=== PATIENT | female | born 1960 | race Caucasian/White ===

== ENCOUNTER → 2017-01-14 | Outpatient (CLI) | payer BC ==
--- NOTE | 2017-01-15 08:23 | MM ---
Reason for exam: screening (asymptomatic). Last mammogram was performed 1 year and 5 months ago. History: Patient is postmenopausal. Took estrogen for 6 years beginning at age 45. Physical Findings: A clinical breast exam by your physician is recommended on an annual basis and results should be correlated with mammographic findings. MG Screening Mammo w CAD Bilateral CC and MLO view(s) were taken. XCCL view(s) were taken of the right breast. Prior study comparison: August 02, 2015, bilateral MG 3d diag mammo w/cad JAY. June 26, 2014, right breast MG work up mamm w CAD RT. There are scattered fibroglandular densities. No significant changes when compared with prior studies. ASSESSMENT: Benign, BI-RAD 2 RECOMMENDATION: Routine screening mammogram of both breasts in 1 year.
== END | disposition home or self-care (01) ==
LOC: RADMAMWWP 08:01
PROVIDERS: ATTEND Obstetrics & Gynecology
DX: Z12.31 Encounter for screening mammogram for malignant neoplasm of breast (principal); Z13.9 Encounter for screening, unspecified
CPT/HCPCS: 84439; 80061; 82947; 84443; G0202

== ENCOUNTER 2017-01-28 07:24 | Day surgery (SDC) | payer BC ==
[2017-01-26 16:19] VITALS: BMI 34.4
[2017-01-28 07:48] VITALS: TEMP 97.3
[2017-01-28] MEDS: LACTATED RINGERS 1,000 ML IV SCH ×2 (07:50→07:58)
[2017-01-28] MEDS ORDERED: LIDOCAINE 1% 20 ML VIAL (10MG/ML) FOR IV START INTRADERMA ONE (07:50)
[2017-01-28] MEDS ORDERED: PROPOFOL 10 MG/ML 20 ML VIAL IV ONE (08:00)
[2017-01-28] MEDS ORDERED: LIDOCAINE 1% INJ 10MG/ML (20 ML MDV) ONE (08:00)
--- NOTE | 2017-01-28 08:39 | P.PCN ---
Date of Procedure: 01/28/17 Preoperative Diagnosis: Postoperative Diagnosis: Procedure(s) Performed: Procedure: Colonoscopy and polypectomy. Preoperative diagnosis: Screening for neoplasia. Postoperative diagnosis: 1. Two small polyps snared but no large polyps or cancer. 2. Low-grade internal hemorrhoids not bleeding at the time of this exam. Preparation: HalfLytely prep. Sedation: Was provided by anesthesia. Brief clinical history: The patient is a 57-year-old female who is referred for this evaluation for screening for neoplasia age being her risk factor. There is no family history of colon cancer. This would be her first colonoscopy. The patient reports occasional constipation and occasional blood on her stools or on the toilet tissue which she blames on hemorrhoids. Procedure: With the patient on her left lateral decubitus position and after informed consent and adequate sedation, the perianal area was inspected and it did not show any fissures or fistulas. There was some skin relaxation and redundancy and an external skin tag probably representing a thrombosed external hemorrhoid. No masses were felt on digital rectal examination. The Olympus CFQ 160L video colonoscope was then inserted in the rectum in the usual fashion and advanced to the cecum. The preparation was less than ideal with some thick fecal secretions and fecal debris that could not be washed off totally in all areas. The mucosa, otherwise, appeared healthy. There was 2 small polyps which I snared one in the proximal sigmoid and one in the distal sigmoid but there were no large polyps or cancer. No obvious diverticular disease. I retroflexed the endoscope in the rectum before the endoscope was withdrawn. Low -grade internal hemorrhoids were noted without bleeding as well as prominent anal papillae. The patient tolerated the procedure well. Plan: The patient was reassured. Discussed dietary measures and local care for hemorrhoids. I anticipate repeating this exam in 3 years. She will follow-up with you as planned. Implants: Indications for Procedure: Operative Findings: Description of Procedure:
[2017-01-28 08:50] VITALS: RESP 16
[2017-01-28 09:28] VITALS: BP 118/69; PULSE 73
== END 2017-01-28 09:18 | disposition home or self-care (01) ==
LOC: ORWHC2ENDO 07:24
DX: Z12.11 Encounter for screening for malignant neoplasm of colon (principal); K63.5 Polyp of colon; K64.8 Other hemorrhoids; E78.5 Hyperlipidemia, unspecified; Z79.899 Other long term (current) drug therapy; Z88.5 Allergy status to narcotic agent; Z88.8 Allergy status to other drugs, medicaments and biological substances; Z72.0 Tobacco use
CPT/HCPCS: 88305; 45385; J2001; J2704

== ENCOUNTER → 2017-04-08 | Outpatient (CLI) | payer BC ==
--- NOTE | 2017-04-08 16:17 | US ---
"EXAMINATION TYPE: US abdomen limited DATE OF EXAM: 04/08/2017 COMPARISON: NONE CLINICAL HISTORY: R10.11 Right upper quadrant pain. EXAM MEASUREMENTS: Liver Length: 17.6 cm Gallbladder Wall: 0.2 cm CBD: 0.2 cm Right Kidney: 10.9 x 3.7 x 4.9 cm cm Pancreas: Obscured by bowel gas Liver: left lobe vascular structure mass 2.3 x 3.1 x 1.4 cm Gallbladder: wnl Evidence for sonographic Steinberg's sign: Yes CBD: wnl Right Kidney: wnl IMPRESSION: 1. There is an ill-defined hypoechoic: Mass within the left lobe liver. Additional workup with contra st CT abdomen is recommended. 2. Mild hepatomegaly 17.6 cm. A Yellow message has been communicated to Kwasi Cosme MD via the [employer] | Critical Result sy stem on 04/08/2017 4:15 PM, Message ID [id number]."
== END | disposition home or self-care (01) ==
LOC: RADUSWWP 07:09
PROVIDERS: ATTEND Family Medicine
DX: R16.0 Hepatomegaly, not elsewhere classified (principal); Z88.2 Allergy status to sulfonamides; Z88.5 Allergy status to narcotic agent
CPT/HCPCS: 76705

== ENCOUNTER → 2017-04-13 | Outpatient (CLI) | payer BC ==
--- NOTE | 2017-04-13 08:53 | CT ---
EXAMINATION TYPE: CT abdomen w con DATE OF EXAM: 04/13/2017 COMPARISON: NONE HISTORY: Liver mass CT DLP: 1352.80 mGycm CONTRAST: CT scan of the abdomen is performed with Oral Contrast and with IV Contrast, patient injected with 10 0 ml mL of Omnipaque 300. FINDINGS: LUNG BASES-: No visible nodule. No infiltrate. LIVER/GB: No calcified gallstones. Hyperdense lesion anterior segment right hepatic lobe measures 2 cm could reflect hemangioma however given lack of filling in on delayed images cannot exclude other possibilities and MRI of the liver is advised. There is evidence of fatty hepatic infiltration and mi ld hepatomegaly. PANCREAS: No inflammation. No distinct mass. SPLEEN: No splenic enlargement. No lesion seen. ADRENALS: No nodule. No thickening. KIDNEYS/BLADDER: No hydronephrosis. No nephrolithiasis. 2.1 cm angiomyolipoma upper pole left kidn ey. No additional space-occupying lesions are seen of the kidneys. Urinary bladder grossly unremarkab le. BOWEL: Normal bowel caliber. No inflammation. LYMPH NODES: No greater than 1cm abdominal or pelvic lymph nodes are appreciated. AORTA: No significant abnormality. OSSEOUS STRUCTURES: No significant abnormality is seen. OTHER: Fat-containing umbilical hernia is noted. IMPRESSION: 1. Nonspecific hyperdense hepatic lesion could reflect hemangioma however given lack of filling furth er characterization with MRI advised. 2. Angiomyolipoma left kidney. 3. Mild hepatomegaly and fatty hepatic infiltration.
== END | disposition home or self-care (01) ==
LOC: RADCTMAIN 08:04
PROVIDERS: ATTEND Family Medicine
DX: K76.0 Fatty (change of) liver, not elsewhere classified (principal); D17.71 Benign lipomatous neoplasm of kidney; R16.0 Hepatomegaly, not elsewhere classified
CPT/HCPCS: 74160; Q9967

== ENCOUNTER → 2017-04-27 | Outpatient (CLI) | payer BC ==
--- NOTE | 2017-04-27 08:04 | MR ---
EXAMINATION TYPE: MR abdomen wo/w con DATE OF EXAM: 04/27/2017 COMPARISON: CT abdomen dated 04/13/2017 HISTORY: Hepatic Lesion CONTRAST: Standard multiplanar, multisequence MRI departmental protocol utilizing 10 mL intravenous Gadavist ga dolinium contrast. FINDINGS: LIVER: There is heterogenous signal dropout on out of phase imaging of the hepatic parenchyma with fo david fatty sparing in segment IVb and for a without corresponding T2 signal abnormality. 7 mm T2 hyper intense and T1 hypointense nonenhancing hepatic cyst is seen within segment 8 on image 32 of T2 axial fat sat sequence. 2 smaller subcentimeter cysts are also seen on image 40 within the right hepatic l obe and additional cyst on image 45 within the right hepatic lobe near the dome of the diaphragm. Las tly additional subcentimeter cyst is present in segment IVb near the fissure for the ligamentum teres . As described on the prior CT there is a T2 hyperintense multilobulated 1.9 x 2.3 x 2.4 cm (anteropost erior by transverse by cranial caudal dimension) mass is present within segment 5 that is T1 hypointe nse. This demonstrates peripheral discontinuous puddling enhancement filling in completely on delayed imaging compatible with a benign hemangioma. KIDNEYS: Within the superior pole of the left kidney emanating from the anterior cortex there is a pr edominantly fat containing lesion that is hyperintense on nonfat sat sequences and hypointense on fat sat sequences with internal foci of signal dropout indicating additional microscopic fat measuring 1 .9 cm compatible with benign angiomyolipoma. Emanating from the superior pole the right kidney there is a T2 hyperintense and T1 hypointense nonen hancing renal cyst. Remainder of the kidneys enhance symmetrically. ADRENAL glands: Symmetric and unremarkable without evidence of nodularity. GALLBLADDER: No gallbladder wall thickening, pericholecystic fluid or cholelithiasis visualized on MR I. SPLEEN: Abnormal enhancement and morphology measuring 10.3 cm in craniocaudal dimension, nonenlarged. VASCULATURE: Visualized portions of the abdominal aorta are of normal course and caliber. ABDOMINAL wall: A ventral periumbilical fat filled hernia is seen within approximately 1.0 cm neck. BOWEL: Bowel is nonenlarged with no focal bowel wall thickening. PANCREAS: No ductal dilatation or discrete pancreatic mass. No pancreatic atrophy. OSSEOUS STRUCTURES: Unremarkable bone marrow signal other than multilevel degenerative endplate agustin es of the thoracic spine, mild in degree. LUNG BASES: Right basilar pleural-parenchymal scarring is present. ADENOPATHY: No gross evidence of adenopathy within the abdomen. IMPRESSION: 1. Benign hepatic hemangioma, the lesion in question on the prior CT, and benign subcentimeter hepati c cysts superimposed on a background of heterogenous mild hepatic steatosis with areas of focal fatty sparing. 2. Benign right renal cyst and left renal angiomyolipoma.
== END | disposition home or self-care (01) ==
LOC: RADMRIMAIN 06:04
PROVIDERS: ATTEND Family Medicine
DX: D18.03 Hemangioma of intra-abdominal structures (principal); K76.89 Other specified diseases of liver; K76.0 Fatty (change of) liver, not elsewhere classified; D17.71 Benign lipomatous neoplasm of kidney; N28.1 Cyst of kidney, acquired
CPT/HCPCS: 74183; A9577

== ENCOUNTER → 2018-05-11 | Outpatient (CLI) | payer BC ==
--- NOTE | 2018-05-16 10:53 | MM ---
Reason for exam: screening (asymptomatic). Last mammogram was performed 1 year and 4 months ago. History: Patient is postmenopausal. Taking estrogen for 13 years beginning at age 45. Physical Findings: A clinical breast exam by your physician is recommended on an annual basis and results should be correlated with mammographic findings. MG 3D Screening Mammo W/Cad Bilateral CC and MLO view(s) were taken. Prior study comparison: January 14, 2017, bilateral MG screening mammo w CAD. August 02, 2015, bilateral MG 3d diag mammo w/cad JAY. The breast tissue is heterogeneously dense. This may lower the sensitivity of mammography. No suspicious abnormality. No significant changes when compared with prior studies. ASSESSMENT: Negative, BI-RAD 1 RECOMMENDATION: Routine screening mammogram of both breasts in 1 year.
== END | disposition home or self-care (01) ==
LOC: RADMAMWWP 09:40
PROVIDERS: ATTEND Family Medicine
DX: Z12.31 Encounter for screening mammogram for malignant neoplasm of breast (principal)
CPT/HCPCS: 77063; 77067

== ENCOUNTER 2018-09-02 13:12 | Emergency (ER) | payer BC, OTHER ==
[2018-09-02 13:16] VITALS: BP 133/78; PULSE 77; RESP 18; TEMP 97.6
--- NOTE | 2018-09-02 14:40 | ED ---
General Adult HPI - General Chief complaint: Needlestick/Exposure Stated complaint: [facility]-Needle stick Time Seen by Provider: 09/02/18 14:03 Source: patient, RN notes reviewed Mode of arrival: ambulatory Limitations: no limitations - History of Present Illness Initial comments: This a 58-year-old female sent emergency Department with chief complaint of ne edlestick. Patient states that she poked her left hand with lancet. She states that it did draw blood but states that she's not exactly sure if it was her third or fourth digit at this time. Patient is not exactly sure when her last tetanus was. Patient states that child has no known medical diseases. Patient states she's had this happen in the past. Patient has no history of HIV or hepatitis. - Related Data Home Medications Medication Instructions Recorded Confirmed Sertraline [Zoloft] 25 mg PO HS 06/27/15 01/28/17 Ascorbic Acid [Vitamin C] 500 mg PO DAILY 01/26/17 01/28/17 Soy Isofla/Blk Cohosh/Mag Bark 155 mg PO DAILY 01/26/17 01/28/17 [Estroven 155 mg Capsule] Vitamin B Complex 1 each PO DAILY 01/26/17 01/28/17 Vitamin E 400 unit PO DAILY 01/26/17 01/28/17 Allergies Allergy/AdvReac Type Severity Reaction Status Date / Time codeine Allergy Hallucinati Verified 09/02/18 13:16 ons meperidine [From Demerol] Allergy Hallucinati Verified 09/02/18 13:16 ons oxycodone [From Percodan] Allergy Hallucinati Verified 09/02/18 13:16 ons Review of Systems ROS Statement: Those systems with pertinent positive or pertinent negative responses have been documented in the HPI. ROS Other: All systems not noted in ROS Statement are negative. Past Medical History Past Medical History: Hyperlipidemia History of Any Multi-Drug Resistant Organisms: None Reported Past Surgical History: Appendectomy, Section, Hysterectomy, Orthopedic Surgery Additional Past Surgical History / Comment(s): LEFT KNEE ARTHROSCOPIC, LEFT FOOT SURGERY, OOPHERECTOMY , Past Anesthesia/Blood Transfusion Reactions: Motion Sickness Past Psychological History: No Psychological Hx Reported Smoking Status: Current some day smoker Past Alcohol Use History: Occasional Past Drug Use History: None Reported - Past Family History Mother Family Medical History: No Reported History General Exam Limitations: no limitations General appearance: alert, in no apparent distress Head exam: Present: atraumatic, normocephalic, normal inspection Neck exam: Present: normal inspection. Absent: tenderness, meningismus, lymphadenopathy Respiratory exam: Present: normal lung sounds bilaterally. Absent: respiratory distress, wheezes, rales, rhonchi, stridor Cardiovascular Exam: Present: regular rate, normal rhythm, normal heart sounds. Absent: systolic murmur, diastolic murmur, rubs, gallop, clicks Extremities exam: Present: other (No obvious area of injury or open wound noted to the extremities of the left hand digits) Skin exam: Present: warm, dry, intact, normal color. Absent: rash Course Vital Signs 09/02/18 13:13 Temperature 97.6 F Pulse Rate 77 Respiratory 18 Rate Blood Pressure 133/78 O2 Sat by Pulse 98 Oximetry Medical Decision Making - Medical Decision Making 58-year-old female presented for blood exposure after being struck by a lancet. Patient was offered HIV prophylaxis. Patient declines. Patient is requesting HIV and hepatitis testing for her low. She will have repeat 6 weeks and return for any worsening symptoms. Disposition Clinical Impression: Accidental needlestick injury with exposure to body fluid Disposition: HOME SELF-CARE Condition: Stable Instructions (If sedation given, give patient instructions): Needle Stick Injuries (ED) Additional Instructions: Please return to the Emergency Department if symptoms worsen or any other concerns. Is patient prescribed a controlled substance at d/c from ED?: No Referrals: Kwasi Cosme MD [Primary Care Provider] - 1-2 days Time of Disposition: 14:39
== END 2018-09-02 15:00 | disposition home or self-care (01) ==
LOC: EC 13:12
DX: Z77.21 Contact with and (suspected) exposure to potentially hazardous body fluids (principal); F17.200 Nicotine dependence, unspecified, uncomplicated; Z79.899 Other long term (current) drug therapy; Z88.5 Allergy status to narcotic agent; W46.0XXA Contact with hypodermic needle, initial encounter; Y93.89 Activity, other specified; Y92.219 Unspecified school as the place of occurrence of the external cause; Y99.0 Civilian activity done for income or pay
CPT/HCPCS: 99282

== ENCOUNTER → 2018-10-04 | Outpatient (CLI) | payer OTHER ==
--- NOTE | 2018-10-04 12:21 | XR ---
EXAMINATION TYPE: XR lumbar spine 2 or 3V DATE OF EXAM: 10/04/2018 CLINICAL HISTORY: Low back pain TECHNIQUE: Frontal and lateral images of the lumbar spine are obtained. COMPARISON: None FINDINGS: There are 5 lumbar type vertebral bodies identified. The lumbar spine shows satisfactory alignment without evidence of acute fracture or malalignment. Vertebral body heights and disk space h eights are within normal limits. Anterior osteophytes project from the lumbar spine at multiple level s. Mild facet arthropathy is seen at L4-L5 and L5-S1. The overlying soft tissue appears unremarkable . IMPRESSION: No acute fracture or malalignment is seen in the lumbar spine. Moderate degenerative dis c disease of the lumbar spine.
--- NOTE | 2018-10-04 12:21 | XR ---
EXAMINATION TYPE: XR knee complete bilateral DATE OF EXAM: 10/04/2018 COMPARISON: NONE HISTORY: Pain TECHNIQUE: Three views are submitted bilaterally. FINDINGS: Mild narrowing the medial compartment of the knee joint and patellofemoral joint bilaterally. Small a mount of fluid in the suprapatellar bursa bilaterally greater on the right.. Osseous structures are intact. No acute fracture seen. IMPRESSION: 1. No acute fracture or dislocation. 2. Small amount of fluid in the suprapatellar bursa bilaterally greater on the right. If there is con cern for internal derangement of the knee correlate with MRI. 3. Changes of osteoarthritis.
== END | disposition home or self-care (01) ==
LOC: RADXRMAIN 11:39
PROVIDERS: ATTEND Emergency Medicine
DX: M51.36 Other intervertebral disc degeneration, lumbar region (principal); M17.0 Bilateral primary osteoarthritis of knee
CPT/HCPCS: 72100

== ENCOUNTER → 2019-05-19 | Outpatient (CLI) | payer BC ==
--- NOTE | 2019-05-19 12:00 | MM ---
Reason for exam: screening (asymptomatic). Last mammogram was performed 1 year ago. History: Patient is postmenopausal. Took estrogen for 13 years beginning at age 45. Physical Findings: A clinical breast exam by your physician is recommended on an annual basis and results should be correlated with mammographic findings. MG Screening Mammo w CAD Bilateral CC and MLO view(s) were taken. Prior study comparison: May 11, 2018, bilateral MG 3d screening mammo w/cad. January 14, 2017, bilateral MG screening mammo w CAD. The breast tissue is heterogeneously dense. This may lower the sensitivity of mammography. There is no discrete abnormality. ASSESSMENT: Negative, BI-RAD 1 RECOMMENDATION: Routine screening mammogram of both breasts in 1 year.
== END | disposition home or self-care (01) ==
LOC: RADMAMWWP 09:52
PROVIDERS: ATTEND Obstetrics & Gynecology
DX: Z12.31 Encounter for screening mammogram for malignant neoplasm of breast (principal)
CPT/HCPCS: 77067

== ENCOUNTER → 2020-02-20 | Outpatient (CLI) | payer BC | END | disposition home or self-care (01) | LOC: LABWHC1 13:35 | PROVIDERS: ATTEND Orthopaedic Surgery | DX: E55.9 Vitamin D deficiency, unspecified (principal) | CPT/HCPCS: 36415; 82306 ==

== ENCOUNTER → 2020-12-03 | Outpatient (CLI) | payer BC, OTHER ==
--- NOTE | 2020-12-05 09:36 | MM ---
Reason for exam: screening (asymptomatic). Last mammogram was performed 1 year and 7 months ago. History: Patient is postmenopausal. Took estrogen for 13 years beginning at age 45. Physical Findings: A clinical breast exam by your physician is recommended on an annual basis and results should be correlated with mammographic findings. MG Screening Mammo w CAD Bilateral CC and MLO view(s) were taken. Prior study comparison: May 19, 2019, bilateral MG screening mammo w CAD. May 11, 2018, bilateral MG 3d screening mammo w/cad. There are scattered fibroglandular densities. ASSESSMENT: Negative, BI-RAD 1 RECOMMENDATION: Routine screening mammogram of both breasts in 1 year.
== END | disposition home or self-care (01) ==
LOC: RADMAMWWP 09:15
PROVIDERS: ATTEND Family Medicine
DX: Z12.31 Encounter for screening mammogram for malignant neoplasm of breast (principal); Z78.0 Asymptomatic menopausal state
CPT/HCPCS: 77067

== ENCOUNTER 2021-02-04 09:00 | Day surgery (SDC) | payer BC ==
[~2021-02-04 09:00] MED LIST: LACTATED RINGERS 1,000 ML IV SCH
[2021-02-04 09:30] VITALS: TEMP 98.2
[2021-02-04 09:42] LABS: Glucose,Whole Blood 128 mg/dL (75-99)
[2021-02-04] MEDS ORDERED: PROPOFOL 10 MG/ML 20 ML VIAL IV ONE (10:10)
[2021-02-04] MEDS ORDERED: LIDOCAINE 1% INJ 10MG/ML (20 ML MDV) ONE (10:10)
--- NOTE | 2021-02-04 10:17 | P.GSHP ---
History of Present Illness H&P Date: 02/04/21 Chief Complaint: Colon cancer screening 7-year-old female here for colonoscopy. Last colonoscopy 4 years ago. Patient had a serrated polyp at that time. No bowel complaints. No family history of colon cancer. Past Medical History Past Medical History: Diabetes Mellitus History of Any Multi-Drug Resistant Organisms: None Reported Past Surgical History: Appendectomy, Section, Hysterectomy, Orthopedic Surgery Additional Past Surgical History / Comment(s): LEFT KNEE ARTHROSCOPIC, LEFT FOOT SURGERY, OOPHERECTOMY Past Anesthesia/Blood Transfusion Reactions: Motion Sickness Past Psychological History: No Psychological Hx Reported Smoking Status: Current every day smoker Past Alcohol Use History: Rare Additional Past Alcohol Use History / Comment(s): STARTED SMOKING AT AGE 17 SMOKES 2 PACKS PER WEEK Past Drug Use History: None Reported - Past Family History Mother Family Medical History: No Reported History Medications and Allergies Home Medications Medication Instructions Recorded Confirmed Type Ascorbic Acid [Vitamin C] 500 mg PO DAILY 01/26/17 01/31/21 History Vitamin B Complex 1 each PO DAILY 01/26/17 01/31/21 History Vitamin E 400 unit PO DAILY 01/26/17 01/31/21 History Ibuprofen [Advil] 200 - 400 mg PO Q6H PRN 01/31/21 01/31/21 History metFORMIN HCL [Glucophage] 500 mg PO BID 01/31/21 01/31/21 History Allergies Allergy/AdvReac Type Severity Reaction Status Date / Time codeine Allergy Hallucinati Verified 02/04/21 09:24 ons meperidine [From Demerol] Allergy Hallucinati Verified 02/04/21 09:24 ons oxycodone [From Percodan] Allergy Hallucinati Verified 02/04/21 09:24 ons Surgical - Exam Vital Signs Temp Pulse Resp BP Pulse Ox 98.2 F 78 16 149/68 98 02/04/21 09:29 02/04/21 09:29 02/04/21 09:29 02/04/21 09:29 02/04/21 09:29 Physical exam: General: Well-developed, well-nourished HEENT: Normocephalic, sclerae nonicteric Abdomen: Nontender, nondistended Extremities: No edema Neuro: Alert and oriented Results - Labs Abnormal Lab Results - Last 24 Hours (Table) 02/04/21 Range/Units 09:41 POC Glucose (mg/dL) 128 H (75-99) mg/dL Assessment and Plan (1) Colon cancer screening Narrative/Plan: Will proceed with colonoscopy at this time Current Visit: Yes Status: Acute Code(s): Z12.11 - ENCOUNTER FOR SCREENING FOR MALIGNANT NEOPLASM OF COLON SNOMED Code(s): 184469546
--- NOTE | 2021-02-04 10:35 | P.PCN ---
Date of Procedure: 02/04/21 Procedure(s) Performed: PREOPERATIVE DIAGNOSIS: Colon cancer screening, history of polyps POSTOPERATIVE DIAGNOSIS: Rectal polyp 2 PROCEDURE: Colonoscopy with snare polypectomy ANESTHESIA: MAC SURGEON: Pietro Chau M.D. SPECIMENS: Rectal polyps ENDOSCOPIC PROCEDURE: The patient was placed on the endoscopy table in the left decubitus position. The Olympus colonoscope was inserted into the anus and passed under direct visualization to the base of the cecum. The appendiceal orifice was visualized. From that point the scope was slowly withdrawn inspecting all surfaces carefully. There were no neoplastic inflammatory or polypoid lesions throughout the cecum, ascending, transverse, descending, and sigmoid colon. In the rectum there were 2 polyps noted both removed using the snare with cautery technique. There was mild left-sided diverticulosis. Digital rectal examination was normal. The patient was taken to the recovery room in stable condition per anesthesia guidelines. RECOMMENDATIONS: Await biopsy results. Anticipate follow-up colonoscopy 5 years.
[2021-02-04 10:56] VITALS: BP 136/77; PULSE 55; RESP 16
== END 2021-02-04 11:16 | disposition home or self-care (01) ==
LOC: ORWHC2ENDO 09:00
PROVIDERS: ATTEND Surgery
DX: Z12.11 Encounter for screening for malignant neoplasm of colon (principal); D12.8 Benign neoplasm of rectum; E11.9 Type 2 diabetes mellitus without complications; F17.210 Nicotine dependence, cigarettes, uncomplicated; Z79.899 Other long term (current) drug therapy; Z88.5 Allergy status to narcotic agent; Z88.0 Allergy status to penicillin; Z79.84 Long term (current) use of oral hypoglycemic drugs
CPT/HCPCS: 88305; 45385; J2001; J2704

== ENCOUNTER → 2022-04-22 | Outpatient (CLI) | payer BC ==
--- NOTE | 2022-04-22 11:28 | BD ---
EXAMINATION TYPE: Axial Bone Density DATE OF EXAM: 04/22/2022 COMPARISON: 08/02/2015 CLINICAL HISTORY: 62 years year old Female. ICD-10 CODE: Z78.0 POST MENOPAUSAL WITHOUT HRT Height: 67 IN Weight: 214 LBS FRAX RISK QUESTIONS: History of Fracture in Adulthood: RT FOOT FX AGE 60 Secondary Osteoporosis: 3. Menopause before 45: TOTAL HYST AGE 46 RISK FACTORS HISTORY OF: Family History of Osteoporosis: YES MOTHER Active: YES Postmenopausal woman: TOTAL HYST AGE 46 Take estrogen and/or progesterone medications: NOT NOW How long: TOOK CONTROL FOR 10 YEARS MEDICATIONS: Additional Medications: B COMPLEX, VIT E, VIT C, METFORMIN EXAM MEASUREMENTS: Bone mineral densitometry was performed using the [employer]. Bone mineral density as measured about the Lumbar spine is: ----- L1-L4(G/cm2): 1.203 T Score Values are as follows: ----- L1: 1.9 ----- L2: 0.4 ----- L3: -0.3 ----- L4: -1.0 ----- L1-L4: 0.2 Bone mineral density has: Decreased -4.9% since study of: 08/02/2015 Bone mineral density about the R hip (g/cm2): 0.999 Bone mineral density about the L hip (g/cm2): 0.977 T Score values are as follows: -----R Neck: -0.3 -----L Neck: -0.4 -----R Total: 0.4 -----L Total: 0.5 Bone mineral density has: Decreased -5.9% since study of: 08/02/2015 FRAX%s: The graph provided illustrates a 10.8 chance for a major osteoporotic fx and a .4 chance for the hips probability for fx in 10 years time. IMPRESSION: Normal (Values between +1 and -1 indicate normal bone mass). Consider repeating this study in 5 year s or sooner if there is some new clinical indication. NOTE: T-SCORE=SD OF THE YOUNG ADULT MEAN.
--- NOTE | 2022-04-23 21:15 | MM ---
Reason for Exam: Screening (asymptomatic). Last mammogram was performed 1 year(s) and 5 month(s) ago. Patient History: Menarche at age 15. First Full-Term at age 31. Late child-bearing (after 31). Left ovary removed at age 43. Right ovary removed at age 45. Hysterectomy at age 43. Postmenopausal. Estrogen, from age 45 until age 53. Risk Values: Mary 5 year model risk: 1.9%. NCI Lifetime model risk: 8.9%. Prior Study Comparison: 05/11/2018 Bilateral Screening Mammogram, [facility]. 05/19/2019 Bilateral Screening Mammogram, [facility]. 12/03/2020 Bilateral Screening Mammogram, [facility]. Tissue Density: There are scattered fibroglandular densities. Findings: Analyzed By CAD. Chronic nodularity anterior superior right MLO view. Unchanged asymmetric density lateral right CC view. Asymmetric density subareolar left cc view is more defined and incompletely disperses on 3-D images. However, the appearance is similar on the MLO view. This may represent superimposition shadow but further evaluation is recommended. Overall Assessment: Incomplete: need additional imaging evaluation, BI-RAD 0 Management: Special View Mammogram of the left breast. Including spot 3-D CC, 3-D cc rolled, spot 3-D MLO, and 3-D lateral views. Targeted left breast ultrasound if any persisting abnormality. [facility] will attempt to contact patient to return for supplemental views and ultrasound if indicated. Electronically signed and approved by: Jalil Mora M.D. Radiologist
== END | disposition home or self-care (01) ==
LOC: RADBDWWP 09:08
PROVIDERS: ATTEND Family Medicine
DX: Z12.31 Encounter for screening mammogram for malignant neoplasm of breast (principal); Z78.0 Asymptomatic menopausal state; Z90.721 Acquired absence of ovaries, unilateral
CPT/HCPCS: 77063; 77067; 77080

== ENCOUNTER → 2022-04-30 | Outpatient (CLI) | payer BC ==
--- NOTE | 2022-04-30 09:33 | MM ---
Reason for Exam: Additional evaluation requested from prior study. Last screening mammogram was performed less than 1 month ago. Patient History: Menarche at age 15. First Full-Term at age 31. Late child-bearing (after 31). Left ovary removed at age 43. Right ovary removed at age 45. Hysterectomy at age 43. Postmenopausal. Estrogen, from age 45 until age 53. Risk Values: Mary 5 year model risk: 1.9%. NCI Lifetime model risk: 8.9%. Prior Study Comparison: 05/19/2019 Bilateral Screening Mammogram, [facility]. 12/03/2020 Bilateral Screening Mammogram, [facility]. 04/22/2022 Bilateral MG 3D screening mammo w/cad, [facility]. Tissue Density: Left: The breast tissue is heterogeneously dense. This may lower the sensitivity of mammography. Findings: Analyzed By CAD. Under compression of the superior and subareolar left breast appears to disperse. Findings appear stable from comparison studies. Monitoring is recommended with follow-up exam in 6 months. Overall Assessment: Probably benign, BI-RAD 3 Management: Diagnostic Mammogram of the left breast in 6 months. A clinical breast exam by your physician is recommended on an annual basis and results should be correlated with mammographic findings. This exam should not preclude additional follow-up of suspicious palpable abnormalities. Results were given to the patient verbally at the time of exam. Electronically signed and approved by: Kevon Bojorquez D.O. Radiologis
== END | disposition home or self-care (01) ==
LOC: RADMAMWWP 09:03
PROVIDERS: ATTEND Family Medicine
DX: R92.8 Other abnormal and inconclusive findings on diagnostic imaging of breast (principal); Z78.0 Asymptomatic menopausal state; Z90.721 Acquired absence of ovaries, unilateral
CPT/HCPCS: 77061; 77065

== ENCOUNTER → 2022-11-12 | Outpatient (CLI) | payer BC ==
--- NOTE | 2022-11-12 10:17 | MM ---
Reason for Exam: Follow-up at short interval from prior study. Last screening mammogram was performed 6 month(s) ago. Patient History: Menarche at age 15. First Full-Term at age 31. Late child-bearing (after 31). Left ovary removed at age 43. Right ovary removed at age 45. Hysterectomy at age 43. Postmenopausal. Estrogen, from age 45 until age 53. Risk Values: Mary 5 year model risk: 1.9%. NCI Lifetime model risk: 8.9%. Prior Study Comparison: 12/03/2020 Bilateral Screening Mammogram, [facility]. 04/22/2022 Bilateral MG 3D screening mammo w/cad, [facility]. 04/30/2022 Left MG 3D work up w/cad , [facility]. Tissue Density: Left: There are scattered fibroglandular densities. Findings: Analyzed By CAD. Unchanged nodular configuration to the subareolar left breast densities from 6 months ago. Ongoing short interval follow up recommended. Otherwise, no significant change. Overall Assessment: Probably benign, BI-RAD 3 Management: Diagnostic Mammogram of both breasts in 6 months. Total one-year follow-up left breast. Annual exam of the right breast. Results were given to the patient verbally at the time of exam. Patient should continue monthly self-breast exams. A clinical breast exam by your physician is recommended on an annual basis. This exam should not preclude additional follow-up of suspicious palpable abnormalities. Note on Mary scores and lifetime risk: 1. A Mary score greater than 3% is considered moderate risk. If this is the case, consider specialist referral to assess eligibility for a risk reducing agent. 2. If overall lifetime risk for the development of breast cancer is 20% or higher, the patient may qualify for future screening with alternating mammogram and breast MRI. Electronically signed and approved by: Jalil Mora M.D. Radiologist
== END | disposition home or self-care (01) ==
LOC: RADMAMWWP 09:40
PROVIDERS: ATTEND Family Medicine
DX: R92.8 Other abnormal and inconclusive findings on diagnostic imaging of breast (principal); Z78.0 Asymptomatic menopausal state
CPT/HCPCS: 77061; 77065

== ENCOUNTER 2023-05-21 10:44 | Emergency (ER) | payer BC ==
--- NOTE | 2023-05-21 11:04 | ED ---
General Adult HPI - General Chief complaint: Needlestick/Exposure Stated complaint: [facility] Time Seen by Provider: 05/21/23 10:55 Source: patient, RN notes reviewed Mode of arrival: ambulatory Limitations: no limitations - History of Present Illness Initial comments: Patient is 63-year-old female presented ER chief complaint of a needle stick. Patient works at [employer] and was preparing to check he states blood sugar when she reached in a bag and was poked by a dirty needle on her left fifth digit. Patient has no other complaints. She is unaware of her tetanus vaccination status. - Related Data Home Medications Medication Instructions Recorded Confirmed Ascorbic Acid [Vitamin C] 500 mg PO DAILY 01/26/17 01/31/21 Vitamin B Complex 1 each PO DAILY 01/26/17 01/31/21 Vitamin E 400 unit PO DAILY 01/26/17 01/31/21 Ibuprofen [Advil] 200 - 400 mg PO Q6H PRN 01/31/21 01/31/21 metFORMIN HCL [Glucophage] 500 mg PO BID 01/31/21 01/31/21 Allergies Allergy/AdvReac Type Severity Reaction Status Date / Time codeine Allergy Hallucinati Verified 05/21/23 10:54 ons meperidine [From Demerol] Allergy Hallucinati Verified 05/21/23 10:54 ons oxycodone [From Percodan] Allergy Hallucinati Verified 05/21/23 10:54 ons Review of Systems ROS Statement: Those systems with pertinent positive or pertinent negative responses have been documented in the HPI. ROS Other: All systems not noted in ROS Statement are negative. Past Medical History Past Medical History: Diabetes Mellitus History of Any Multi-Drug Resistant Organisms: None Reported Past Surgical History: Appendectomy, Section, Hysterectomy, Orthopedic Surgery Additional Past Surgical History / Comment(s): LEFT KNEE ARTHROSCOPIC, LEFT FOOT SURGERY, OOPHERECTOMY Past Anesthesia/Blood Transfusion Reactions: Motion Sickness Past Psychological History: No Psychological Hx Reported Smoking Status: Current every day smoker Past Alcohol Use History: Rare Past Drug Use History: None Reported - Past Family History Mother Family Medical History: No Reported History General Exam Limitations: no limitations General appearance: alert, in no apparent distress Respiratory exam: Present: normal lung sounds bilaterally. Absent: respiratory distress, wheezes, rales, rhonchi, stridor Cardiovascular Exam: Present: regular rate, normal rhythm, normal heart sounds. Absent: systolic murmur, diastolic murmur, rubs, gallop, clicks Neurological exam: Present: alert, oriented X3, CN II-XII intact Psychiatric exam: Present: normal affect, normal mood Skin exam: Present: warm, dry, intact, normal color, other (needle stick injury on fifth left digit no active bleeding noted.). Absent: rash Course Vital Signs 05/21/23 10:51 Temperature 97.8 F Pulse Rate 69 Respiratory 18 Rate Blood Pressure 161/81 O2 Sat by Pulse 99 Oximetry Medical Decision Making - Medical Decision Making Was pt. sent in by a medical professional or institution (, [facility], [facility], urgent care, hospital, or fdc...) When possible be specific @ -No Did you speak to anyone other than the patient for history (EMS, parent, family, police, friend...)? What history was obtained from this source @ -No Did you review nursing and triage notes (agree or disagree)? Why? @ -I reviewed and agree with nursing and triage notes Were old charts reviewed (outside hosp., previous admission, EMS record, old EKG, old radiological studies, urgent care reports/EKG's, fdc records)? Report findings @ -No old charts were reviewed Differential Diagnosis (chest pain, altered mental status, abdominal pain women, abdominal pain men, vaginal bleeding, weakness, fever, dyspnea, syncope, headache, dizziness, GI bleed, back pain, seizure, CVA, palpatations, mental health, musculoskeletal)? @ -Needlestick, laceration, abrasion EKG interpreted by me (3pts min.). @ -None X-rays interpreted by me (1pt min.). @ -None done CT interpreted by me (1pt min.). @ -None done U/S interpreted by me (1pt. min.). @ -None done What testing was considered but not performed or refused? (CT, X-rays, U/S, l abs)? Why? @ -None What meds were considered but not given or refused? Why? @ -None Did you discuss the management of the patient with other professionals (professionals i.e. , [facility], [facility] [facility], lab, RT, psych nurse, rn social services, mirror machine feeder, teacher, personnel officer, case sealer)? Give summary @ -No Was smoking cessation discussed for >3mins.? @ -No Was critical care preformed (if so, how long)? @ -No Were there social determinants of health that impacted care today? How? (Homelessness, low income, unemployed, alcoholism, drug addiction, transportation, low edu. Level, literacy, decrease access to med. care, fci, rehab)? @ -No Was there de-escalation of care discussed even if they declined (Discuss DNR or withdrawal of care, Hospice)? DNR status @ -No What co-morbidities impacted this encounter? (DM, HTN, Smoking, COPD, CAD, Cancer, CVA, ARF, Chemo, Hep., AIDS, mental health diagnosis, sleep apnea, morbid obesity)? @ -None Was patient admitted / discharged? Hospital course, mention meds given and route, prescriptions, significant lab abnormalities, going to OR and other pertinent info. @ -Discharge. Patient's vital signs remained stable. Patient had blood work drawn in ER and will be contacted of results. Patient recieved tetanus vaccination. PAtinet will be discharged in stable condition with folow-up to PCP. Return parameters were discussed. Patient expressed understanding and agreement with care plan. Undiagnosed new problem with uncertain prognosis? @ -No Drug Therapy requiring intensive monitoring for toxicity (Heparin, Nitro, Insulin, Cardizem)? @ -No Were any procedures done? @ -No Diagnosis/symptom? @ -Needlestick injury Acute, or Chronic, or Acute on Chronic? @ -Acute Uncomplicated (without systemic symptoms) or Complicated (systemic symptoms)? @ -Uncomplicated Side effects of treatment? @ -No Exacerbation, Progression, or Severe Exacerbation? @ -No Poses a threat to life or bodily function? How? (Chest pain, USA, ME, pneumonia, PE, COPD, DKA, ARF, appy, cholecystitis, CVA, Diverticulitis, Homicidal, Suicidal, threat to staff... and all critical care pts) @ -No Disposition Clinical Impression: Needle stick injury Disposition: HOME SELF-CARE Condition: Stable Instructions (If sedation given, give patient instructions): Needle Stick Injuries (ED) Additional Instructions: Please return to the Emergency Department if symptoms worsen or any other concerns. Is patient prescribed a controlled substance at d/c from ED?: No Referrals: Chauncey Dodd DO [Primary Care Provider] - 1-2 days Time of Disposition: 11:12
[2023-05-21] MEDS ORDERED: DIPH,PERTUS(ACELL)TETVAC-LF 0.5 ML VIAL IM ONE (11:11)
[2023-05-21 11:17] VITALS: BP 161/81; PULSE 69; RESP 18; TEMP 97.8
[2023-05-22 03:16] LABS: Hepatitis B Surface AB- Quant 3.5 mIU/mL
[2023-05-22 03:35] LABS: Hepatitis B Surface Antigen Nonreactive; Hepatitis C IgG Antibody Nonreactive
[2023-05-29 01:59] LABS: HIV 2 AB Non-Reactive (Non-Reactive); HIV AB P24 Non-Reactive (Non-Reactive); HIV P24 AG Non-Reactive (Non-Reactive)
== END 2023-05-21 11:27 | disposition home or self-care (01) ==
LOC: EC 10:44
DX: S61.432A Puncture wound without foreign body of left hand, initial encounter (principal); E11.9 Type 2 diabetes mellitus without complications; F17.200 Nicotine dependence, unspecified, uncomplicated; Z79.84 Long term (current) use of oral hypoglycemic drugs; Z23 Encounter for immunization; Z88.5 Allergy status to narcotic agent; Z88.8 Allergy status to other drugs, medicaments and biological substances; W46.0XXA Contact with hypodermic needle, initial encounter; Y99.0 Civilian activity done for income or pay
CPT/HCPCS: 36415; 86704; 86706; 86803; 87340; 87390; 90471; 90715; 99282

== ENCOUNTER → 2023-06-23 | Outpatient (CLI) | payer BC ==
--- NOTE | 2023-06-23 09:16 | MM ---
Reason for Exam: Follow-up at short interval from prior study. Last mammogram was performed 1 year(s) and 2 month(s) ago. Patient History: Menarche at age 15. First Full-Term at age 31. Late child-bearing (after 31). Left ovary removed at age 43. Right ovary removed at age 45. Hysterectomy at age 43. Postmenopausal. Estrogen, from age 45 until age 53. Risk Values: Mary 5 year model risk: 1.9%. NCI Lifetime model risk: 8.6%. Tissue Density: There are scattered fibroglandular densities. Findings: Analyzed By CAD. Pattern appears symmetrical and stable. The slightly focal asymmetric density in the left subareolar region appears stable over the interval. No interval growth or architectural distortion evident. No suspicious groups of microcalcifications, spiculated or lobular masses, architectural distortion or other secondary signs of malignancy are mammographically apparent. Overall Assessment: Benign, BI-RAD 2 Management: Screening Mammogram of both breasts in 1 year. A negative mammogram report should not preclude additional follow up of suspicious palpable abnormalities. Patient should continue monthly self breast exam. A clinical breast exam by your physician is recommended on an annual basis and results should be correlated with mammographic findings. Electronically signed and approved by: Kevon Bojorquez D.O. Radiologis
== END | disposition home or self-care (01) ==
LOC: RADMAMWWP 08:48
PROVIDERS: ATTEND Family Medicine
DX: R92.323 Mammographic fibroglandular density, bilateral breasts (principal); Z78.0 Asymptomatic menopausal state
CPT/HCPCS: 77062; 77066

== ENCOUNTER → 2024-01-26 | Outpatient (CLI) | payer BC | END | disposition home or self-care (01) | LOC: LABPRL 08:30 | PROVIDERS: ATTEND Family Medicine | DX: E11.9 Type 2 diabetes mellitus without complications (principal) | CPT/HCPCS: 80053; 80061; 83036 ==

== ENCOUNTER → 2024-07-10 | Outpatient (CLI) | payer BC ==
--- NOTE | 2024-07-10 13:50 | MM ---
Reason for Exam: Screening (asymptomatic). Last screening mammogram was performed 12 month(s) ago. Patient History: Menarche at age 15. First Full-Term at age 31. Late child-bearing (after 31). Left ovary removed at age 43. Right ovary removed at age 45. Hysterectomy at age 43. Postmenopausal. Estrogen, from age 45 until age 53. Risk Values: Mary 5 year model risk: 2.0%. NCI Lifetime model risk: 8.4%. Prior Study Comparison: 04/30/2022 Left MG 3D work up w/cad [facility], [facility]. 11/12/2022 Left MG 3D diag mammo w/cad [facility], [facility]. 06/23/2023 Bilateral MG 3D diag mammo w/cad JAY, [facility]. Tissue Density: There are scattered areas of fibroglandular density. Findings: Analyzed By CAD. Asymmetric densities behind the left nipple remain unchanged. There is no suspicious group of microcalcifications or new suspicious mass in either breast. Overall Assessment: Benign, BI-RAD 2 Management: Screening Mammogram of both breasts in 1 year. . Patient should continue monthly self-breast exams. A clinical breast exam by your physician is recommended on an annual basis. This exam should not preclude additional follow-up of suspicious palpable abnormalities. Note on Mary scores and lifetime risk: 1. A Mary score greater than 3% is considered moderate risk. If this is the case, consider specialist referral to assess eligibility for a risk reducing agent. 2. If overall lifetime risk for the development of breast cancer is 20% or higher, the patient may qualify for future screening with alternating mammogram and breast MRI. [facility], , 07/10/2024 1:48 PM. Electronically signed and approved by: Jalil Mora M.D. Radiologist
== END | disposition home or self-care (01) ==
LOC: RADMAMWWP 09:40
PROVIDERS: ATTEND Family Medicine
DX: Z12.31 Encounter for screening mammogram for malignant neoplasm of breast (principal); R92.323 Mammographic fibroglandular density, bilateral breasts; Z78.0 Asymptomatic menopausal state; Z90.721 Acquired absence of ovaries, unilateral
CPT/HCPCS: 77063; 77067